=== PATIENT | female | born 1945 | race Caucasian/White ===

== ENCOUNTER → 2017-03-15 | Outpatient (CLI) | payer MEDICARE ==
[~2017-03-15] MED LIST: ACETAMINOPHEN PO; BACTRIM DS TABL1 TA1 PO; FLONASE 0.05% N16 GM; ISOSORBIDE DINI30 MG PO; KEFLEX500 M1 PO; LASIX PO; LASIX20 MG PO; LEVAQUIN PO; LIPITOR40 MG PO; LODINE PO; LORTAB 7.5-5001 TAB PO; LYRICA75 MG PO; MOBIC PO; MULTIVITAMIN1 UDCAP PO; NABUMETONE PO; NEURONTIN PO; PRILOSEC PO; PYRIDIUM100 MG PO; RELAFEN500 MG PO; TOPROL XL 50 MG50 MG PO; TOPROL XL PO; TRAMADOL HCL50 M1 PO; ULTRAM PO; VITAMIN D2000 UNI1 PO; VITAMIN D2000 UNIT PO
--- NOTE | ~2017-03-15 | CT16 ---
[facility] A Service of [facility] & [facility] RADIOLOGY TEXT RESULTS PATIENT: AISHA STARKEY LOCATION: SNIV : 43 UNIT #: [id number] AGE: [address]: Ra Damian MD SEX: F ORDER DR: [id number] [address] [address] [id number] O MR#: [id number] Acc #: [id number] NAME: AISHA STARKEY : 1945 SEX: F STUDY DATE/TIME: 03/15/2017 14:29 UNIT: SNIV ROOM: STUDY DESCRIPTION: CT Angio Chest for PE Attending Physician: Ra Damian M.D. Referring Physician: Ra Damian M.D. Ordering Physician: Ra Damian M.D. Primary Care Physician: Ra Damian M.D. MEDICAL IMAGING REPORT This report is preliminary unless electronic signature is present. EXAM CT angiography chest for PE 03/15/2017 HISTORY Right upper back pain. Left foot swelling. Right posterior shoulder and upper back pain 1-[address] pulmonary angiography performed with intravenous administration 100 mL Isovue-370. Three-dimensional reconstructions performed through the pulmonary arteries. This CT exam was performed with one or more of the following radiation dose reduction techniques: automatic exposure control, adjustment of mA and/or kV according to patient size, and iterative reconstruction. COMPARISON STUDIES No prior dedicated CTs of chest for comparison. FINDINGS Visualized thyroid unremarkable. No axillary, mediastinal or hilar adenopathy. Heart vscirj-qx-xfxux limits of normal in size. No pleural effusions. Status post cholecystectomy. There is mild central biliary ductal prominence. The extrahepatic duct measures about 17 mm in diameter. Imaging not extended through the entire course of the common duct. No obstructing process seen on these images. The appearance is likely physiologic in etiology and reflective of prior cholecystectomy. Correlate with clinical presentation and laboratory data. Visualized portions of spleen, pancreas, right adrenal gland unremarkable. In the left adrenal body, there is a 2.1 cm x 1.4 cm nodule. It is low in density but does not meet criteria for adenoma on basis of this examination alone. On a CT of the abdomen dated 03/28/2008, it measured STS. [facility] A Service of [facility] & [facility] RADIOLOGY TEXT RESULTS PATIENT: AISHA STARKEY LOCATION: SN : 43 UNIT #: [id number] AGE: [address]: Ra Damian MD SEX: F ORDER DR: 2.3 cm x 2.4 cm. Given presence and decreasing size since 2007, benign adenoma favored. The visualized upper renal poles are unremarkable. There is no upper abdominal adenopathy. Small hiatal hernia. Paxr-ct-rijdvllo gastric distension with food debris. Stomach otherwise unremarkable. Correlate with ingestion history. Visualized transverse colon notable for uncomplicated diverticulosis. Pulmonary parenchyma shows subpleural fibrotic change in upper, mid- and lower lung zones. Most pronounced in the mid- to upper lung zones. There may be some mild developing honeycombing in the periphery of the right mid-lung zone. No evidence of volume loss. No clear indication of acute infectious or inflammatory disease. No pleural effusion or pneumothorax and no suspicious nodule. The pulmonary arteries are well opacified. No PE. Eyraair-gy-uqgdbmnydx aneurysmal dilatation of the distal ascending aorta/proximal aortic arch measuring about 3.8-4 cm in diameter. There are atherosclerotic arterial calcifications. The visualized aortic branch vessels are patent. The configuration of intimal calcifications in the right juxta-renal abdominal aorta suggests either a very short localized dissection or more likely, ulcerated plaque. Ulcerated plaque is favored and chronic time course is favored. The visualized abdominal aorta is normal in caliber. Multilevel degenerative changes in the spine. No acute-appearing bony abnormality. Prominent posterior disc osteophyte complex at the L1-L2 level with zpablima-kb-swnnpo central spinal canal narrowing. Descending nerve root crowding probable. More pronounced than on prior CT abdomen in 2007. IMPRESSION 1. No PE. 2. Nusfutz-oa-rzlirefwln aneurysmal distal ascending aorta/proximal aortic arch measuring 3.8-4 cm in diameter. 3. Configuration of intimal calcifications in the juxta-renal abdominal aorta suggests either chronic short dissection or ulcerated plaque. Ulcerated plaque favored. The visualized abdominal aorta is normal in caliber. 4. Subpleural fibrotic change in the periphery of the lungs, more pronounced on the right than left and more pronounced in the mid- to upper lung zones on the right. There is some evidence of mild honeycombing in the mid- to upper lung zone but there is no volume loss in the lungs. There is no compelling evidence of acute pulmonary disease. 5. Small hiatal hernia. 6. Ejwc-qg-yvlbqpsn distension of stomach with food debris. Correlate with ingestion history. Stomach otherwise unremarkable. 7. Uncomplicated transverse colon diverticulosis. 8. 1.4 cm x 2.1 cm low-density nodule left adrenal gland. Decreased in size from 2008. Favored to be adenoma, given presence and decrease in size since 2008. 9. Status post cholecystectomy. Mild central biliary ductal prominence. Extrahepatic duct measures 1.7 cm in diameter. No obstructing process is STS. [facility] A Service of [facility] RADIOLOGY TEXT RESULTS PATIENT: AISHA STARKEY LOCATION: [facility] : 43 UNIT #: [id number] AGE: [address]: Ra Damian MD SEX: F ORDER DR: seen. Favored to be physiologic in nature and related to the prior cholecystectomy. Correlate with clinical presentation and laboratory data. If further biliary imaging is clinically warranted, consider MRCP. 10. Degenerative changes in the spine. Disc osteophyte complex at the L1-L2 level causing ciemffce-zs-xnhpts central spinal canal narrowing with probable intrathecal descending nerve root crowding. More pronounced than in 2008. Correlate clinically. If further assessment of spinal canal and neural foraminal contents would assist in management, consider elective MRI or CT. Dictated by... Jason Marcum M.D. THIS IS AN ELECTRONICALLY VERIFIED REPORT Jason Marcum M.D. at 03/15/2017 10:50 PM Andre TD: 03/15/2017 21:11 JOB #: [id number] MEDICAL IMAGING REPORT Page 1 of 1
--- NOTE | ~2017-03-15 | US85 ---
[facility] A Service [facility] RADIOLOGY TEXT RESULTS PATIENT: AISHA STARKEY LOCATION: SNIV : 43 UNIT #: [id number] AGE: [address]: Ra Damian MD SEX: F ORDER DR: [id number] [place] [id number] O MR#: [id number] Acc #: [id number] NAME: AISHA STARKEY : 1945 SEX: F STUDY DATE/TIME: 03/15/2017 13:59 UNIT: SNIV ROOM: STUDY DESCRIPTION: [facility] or [facility] Attending Physician: Ra Damian M.D. Referring Physician: Ra Damian M.D. Ordering Physician: Ra Damian M.D. Primary Care Physician: Ra Damian M.D. MEDICAL IMAGING REPORT This report is preliminary unless electronic signature is present. EXAM Left leg vein Doppler, 03/15/2017. INDICATION Left leg swelling for the last 3 weeks. TECHNIQUE Venous ultrasound examination of the left lower extremity was performed using grayscale, spectral Doppler and color flow Doppler imaging. FINDINGS The examination is negative. There is no evidence of left lower extremity deep venous thrombus from the groin to the lower calf. Visualized greater saphenous vein is also patent. IMPRESSION Negative examination. No evidence of left lower extremity DVT. Dictated by... Edmund Malhotra Jr., M.D. THIS IS AN ELECTRONICALLY VERIFIED REPORT Edmund Malhotra Jr., M.D. at 03/16/2017 10:17 AM AIME/miguel TD: 03/15/2017 19:35 JOB #: [id number] [facility] A Service [facility] RADIOLOGY TEXT RESULTS PATIENT: AISHA STARKEY LOCATION: SNIV : 43 UNIT #: [id number] AGE: [address]: Ra Damian MD SEX: F ORDER DR: MEDICAL IMAGING REPORT Page 1 of 1
[2017-03-15 14:25] LABS: POC - CREATININE 1.06 mg/dL (0.44-1.03)
== END | disposition home or self-care (01) ==
LOC: SNIV 13:37
PROVIDERS: Family Medicine
DX: R07.89 Other chest pain (principal); M79.89 Other specified soft tissue disorders; I71.2 Thoracic aortic aneurysm, without rupture; I70.0 Atherosclerosis of aorta; J98.4 Other disorders of lung; K44.9 Diaphragmatic hernia without obstruction or gangrene; K31.89 Other diseases of stomach and duodenum; K57.30 Diverticulosis of large intestine without perforation or abscess without bleeding; E27.8 Other specified disorders of adrenal gland; M47.896 Other spondylosis, lumbar region; M25.78 Osteophyte, vertebrae; Z90.49 Acquired absence of other specified parts of digestive tract
CPT/HCPCS: 71275; 82565; 93971; Q9967